=== PATIENT | male | born 1995 | race Caucasian/White ===

== ENCOUNTER 2024-03-23 02:38 | Emergency (ER) | payer BC ==
[~2024-03-23] VITALS: Ht 177.8 cm; Wt 77.1 kg
[2024-03-23 02:46] VITALS: BP_SYST 118; PULSE 87; RESP 20; TEMP 98; O2SAT 95
[2024-03-23] MEDS ORDERED: LIDOCAINE 1%, 20 ML MDV 20 ML ONE ×2 (03:00)
[2024-03-23 03:05] VITALS: BP_SYST 118; PULSE 87; RESP 20; TEMP 98; O2SAT 95
[2024-03-23] MEDS: LIDOCAINE 1% 10 MG/ML, 20 ML MDV INJ ONE (03:26)
== END 2024-03-23 03:24 | disposition home or self-care (01) ==
LOC: SED 02:38
DX: S61.411A Laceration without foreign body of right hand, initial encounter (principal); W01.0XXA Fall on same level from slipping, tripping and stumbling without subsequent striking against object, initial encounter; Y93.89 Activity, other specified; Y92.89 Other specified places as the place of occurrence of the external cause; Y99.8 Other external cause status
CPT/HCPCS: 99282; J2001